=== PATIENT | female | born 1980 | race Caucasian/White ===

== ENCOUNTER 2019-02-23 15:30 | Emergency (ER) | payer SELFPAY ==
[~2019-02-23] VITALS: Ht 165.1 cm; Wt 45.9 kg
[2019-02-23] MEDS ORDERED: MECLIZINE 25 MG TABLET PO ONE (17:30)
[2019-02-23] MEDS ORDERED: METOCLOPRAMIDE INJ 10MG/2ML VIAL (J2765) IV ONE (17:30)
[2019-02-23] MEDS ORDERED: NS 1,000 ML IV ONE (17:30)
[2019-02-23] MEDS ORDERED: KETOROLAC 30 MG/ML VIAL (J1885) IV ONE (17:30)
[2019-02-23 18:01] LABS: BASO % 0.5 % (0.0-1.0); EOS # 0.1 10^3/uL (0.0-0.50); EOS % 0.8 % (0.0-3.0); HEMATOCRIT 40.3 % (36.0-47.0); HEMOGLOBIN 13.7 g/dl (12.0-15.5); LYMPH # 1.7 10^3/uL (1.5-4.5); LYMPH % 21.9 % (24.0-44.0); MEAN CORPUSCULAR HEMOGLOBIN 33.8 pg (27.0-33.0); MEAN CORPUSCULAR VOLUME 99.5 fl (80.0-96.0); MONO # 0.7 10^3/uL (0.0-0.8); MONO % 8.3 % (0.0-5.0); NEUTROPHILS # 5.4 10^3/uL (1.8-7.7); NEUTROPHILS % 68.2 % (36.0-66.0); PLATELET COUNT, AUTOMATED 212 10^3/uL (150-450); RED BLOOD COUNT 4.05 10^6/uL (4.00-5.40); WHITE BLOOD COUNT 7.9 10^3/uL (4.0-10.0)
--- NOTE | 2019-02-23 18:44 | REPVR ---
EXAM: CT Head Without Contrast EXAM DATE/TIME: 02/23/2019 6:29 PM CLINICAL HISTORY: 38 years old, female; Pain; Headache; Additional info: Dizzy, new occipital RAYA, HX blurry vision TECHNIQUE: Imaging protocol: Computed tomography images of the head without contrast. Radiation optimization: All CT scans at this facility use at least one of these dose optimization techniques: automated exposure control; mA and/or kV adjustment per patient size (includes targeted exams where dose is matched to clinical indication); or iterative reconstruction. COMPARISON: No relevant prior studies available. FINDINGS: Brain: Normal. No hemorrhage. Unremarkable white matter. No mass effect. Ventricles: Normal. No ventriculomegaly. Bones/joints: Unremarkable. No acute fracture. Sinuses: Visualized sinuses are unremarkable. No fluid levels. Mastoid air cells: Visualized mastoid air cells are well aerated. No mastoid effusion. Soft tissues: Unremarkable. Oropharynx: Low-lying cerebellar tonsils may indicate the presence of tonsillar ectopia. Clinical correlation suggested. Further evaluation with MR imaging may be indicated. IMPRESSION: 1. Low-lying cerebellar tonsils may indicate the presence of tonsillar ectopia. Clinical correlation suggested. Further evaluation with MR imaging may be indicated. 2. Otherwise unremarkable. Electronically signed by: Kali Jean-Baptiste On 02/23/2019 18:44:05 PM
--- NOTE | 2019-02-23 20:39 | REPVR ---
EXAM: MR Head Without Contrast EXAM DATE/TIME: 02/23/2019 7:24 PM CLINICAL HISTORY: 38 years old, female; Dizziness; Additional info: Low lying cerebellar tonsils on CT, occipital RAYA, dizzy TECHNIQUE: Imaging protocol: MR of the head without contrast. COMPARISON: CT Head without contrast 02/23/2019 6:27 PM FINDINGS: Brain: Normal. No acute infarct. No hemorrhage. No significant white matter disease. No edema. Normal appearance of the cerebellar tonsils. Ventricles: Normal. No ventriculomegaly. Bones/joints: Unremarkable. Soft tissues: Normal. Sinuses: Normal as visualized. No acute sinusitis. Mastoid air cells: Normal as visualized. No mastoid effusion. Orbits: Unremarkable. IMPRESSION: No acute findings. Electronically signed by: Kali Jean-Baptiste On 02/23/2019 20:38:14 PM
[2019-02-23] MEDS ORDERED: ZOFR4TAB16 PO (20:47)
[2019-02-23] MEDS ORDERED: MECL-68 PO (20:47)
[2019-02-23 20:54] VITALS: BP 112/70
--- NOTE | 2019-02-24 10:58 | ED PDOC ---
Post-Departure Follow-Up dr jacinto faxed formal report of ct head for fu Rashawn Gardiner MD Feb 24, 2019 10:58
--- NOTE | 2019-02-24 13:36 | ECGEPIP ---
[facility] - ED Test Date: 2019-02-23 Pat Name: THEO MURRAY Department: Room: - Gender: Female [employer]: RENETTA : 1980 Requested By: CHARLES Hernandez PA-C Order Number: [id number] Reading MD: Manuel Dorantes Measurements Intervals [place] Rate: 51 P: 32 IL: 148 QRS: 69 QRSD: 94 T: -5 QT: 441 QTc: 407 Interpretive Statements SINUS BRADYCARDIA WITH SINUS ARRHYTHMIA NONSPECIFIC T-WAVE ABNORMALITY NO PRIORS FOR COMPARISON Electronically Signed on 02-24-2019 13:36:05 EDT by Manuel Dorantes
== END 2019-02-23 21:05 | disposition home or self-care (01) ==
LOC: M ED 15:30
DX: R42 Dizziness and giddiness (principal); R51 Headache; R00.1 Bradycardia, unspecified; Z87.442 Personal history of urinary calculi; Z72.0 Tobacco use; Z88.1 Allergy status to other antibiotic agents
CPT/HCPCS: 70450; 70551; 80047; 84702; 85025; 93005; 96374; 96375; 99284; J1885; J2765

== ENCOUNTER 2019-08-30 14:20 | Emergency (ER) | payer SELFPAY ==
[~2019-08-30] VITALS: Ht 165.1 cm; Wt 45.8 kg
[2019-08-30 14:20] VITALS: BP 120/75
[~2019-08-30 14:20] MED LIST: MECL1TAB31 PO; ZOFR4TAB16 PO
[2019-08-30 17:10] LABS: INFLUENZA A AMPLIFICATION NEGATIVE (NEGATIVE); INFLUENZA B AMPLIFICATION POSITIVE (NEGATIVE)
[2019-08-30] MEDS ORDERED: ONDA4TAB6 PO (17:36)
[2019-08-30] MEDS ORDERED: ONDANSETRON 4 MG ORAL DISINTEGRATING TAB (Q0162 PER 1MG) PO ONE (17:45)
[2019-08-30] MEDS ORDERED: ACETAMINOPHEN 500 MG TAB PO ONE (17:45)
[2019-08-30] MEDS ORDERED: IBUPROFEN 600 MG TAB PO ONE (17:45)
== END 2019-08-30 17:51 | disposition home or self-care (01) ==
LOC: M ED 14:20
DX: J10.89 Influenza due to other identified influenza virus with other manifestations (principal); K13.79 Other lesions of oral mucosa; K58.9 Irritable bowel syndrome, unspecified; Z87.442 Personal history of urinary calculi; Z88.1 Allergy status to other antibiotic agents; F17.210 Nicotine dependence, cigarettes, uncomplicated
CPT/HCPCS: 87502; 87880; 99284; Q0162

== ENCOUNTER → 2020-02-20 | Emergency (ER) | payer SELFPAY ==
[~2020-02-20] MED LIST changes: +IBUP200C25 PO; +KLON0.5T PO; +ONDA4TAB6 PO; +clonazePAM 0.5 MG TAB ONE
== END | disposition home or self-care (01) ==
LOC: M ED 05:45
DX: F41.1 Generalized anxiety disorder (principal); F33.9 Major depressive disorder, recurrent, unspecified; N83.299 Other ovarian cyst, unspecified side; Z88.1 Allergy status to other antibiotic agents

== ENCOUNTER 2020-02-25 04:56 | Emergency (ER) | payer SELFPAY ==
[~2020-02-25] VITALS: Ht 165.1 cm; Wt 42.8 kg
[~2020-02-25 04:56] MED LIST changes: -IBUP200C25 PO; -KLON0.5T PO; -clonazePAM 0.5 MG TAB ONE
[2020-02-25 04:57] VITALS: BP 121/64
[2020-02-25] MEDS ORDERED: clonazePAM 0.5 MG TAB PO ONE (05:45)
[2020-02-25] MEDS ORDERED: KLON0.5T PO (05:50)
== END 2020-02-25 06:17 | disposition home or self-care (01) ==
LOC: M ED 04:56
DX: F41.1 Generalized anxiety disorder (principal); Z88.1 Allergy status to other antibiotic agents

== ENCOUNTER 2020-03-19 04:47 | Emergency (ER) | payer SELFPAY ==
[~2020-03-19] VITALS: Ht 165.1 cm; Wt 45.5 kg
[~2020-03-19 04:47] MED LIST changes: +KLON0.5T PO
[2020-03-19] MEDS ORDERED: IBUP200C25 PO (04:52)
[2020-03-19] MEDS ORDERED: NS 1,000 ML IV ONE ×2 (06:00→07:30)
[2020-03-19 06:42] LABS: HEMATOCRIT 41.1 % (36.0-47.0); HEMOGLOBIN 14.1 g/dl (12.0-15.5); MEAN CORPUSCULAR HEMOGLOBIN 34.9 pg (27.0-33.0); MEAN CORPUSCULAR HGB CONC 34.3 g/dl (32.0-36.5); MEAN CORPUSCULAR VOLUME 101.7 fl (80.0-96.0); PLATELET COUNT, AUTOMATED 210 10^3/uL (150-450); RED BLOOD COUNT 4.04 10^6/uL (4.00-5.40); WHITE BLOOD COUNT 7.7 10^3/uL (4.0-10.0)
[2020-03-19 07:00] LABS: BLOOD UREA NITROGEN 7 MG/DL (7-18); CALCIUM LEVEL 9.2 MG/DL (8.5-10.1); CARBON DIOXIDE LEVEL 24 MEQ/L (21-32); CHLORIDE LEVEL 108 MEQ/L (98-107); CPK CREATINE PHOSPHOKINASE 127 U/L (26-192); CREATININE FOR GFR 0.72 MG/DL (0.55-1.30); GLOMERULAR FILTRATION RATE > 60.0 (>60); GLUCOSE, FASTING 104 MG/DL (70-100); MAGNESIUM LEVEL 2.2 MG/DL (1.8-2.4); POTASSIUM SERUM 4.3 MEQ/L (3.5-5.1); SODIUM LEVEL 139 MEQ/L (136-145)
[2020-03-19 09:29] VITALS: BP 101/60
== END 2020-03-19 09:32 | disposition home or self-care (01) ==
LOC: M ED 04:47
DX: M79.10 Myalgia, unspecified site (principal); Z88.1 Allergy status to other antibiotic agents; Z77.098 Contact with and (suspected) exposure to other hazardous, chiefly nonmedicinal, chemicals

== ENCOUNTER 2020-04-02 04:37 | Emergency (ER) | payer SELFPAY ==
[~2020-04-02] VITALS: Ht 165.1 cm; Wt 44.1 kg
[~2020-04-02 04:37] MED LIST changes: +IBUP200C25 PO
[2020-04-02 05:25] LABS: BASO # 0.1 10^3/uL (0.0-0.2); BASO % 0.9 % (0.0-1.0); EOS # 0.2 10^3/uL (0.0-0.5); EOS % 2.8 % (0.0-3.0); HEMATOCRIT 35.8 % (36.0-47.0); HEMOGLOBIN 12.4 g/dl (12.0-15.5); LYMPH # 1.8 10^3/uL (1.5-5.0); LYMPH % 31.1 % (24.0-44.0); MEAN CORPUSCULAR HGB CONC 34.6 g/dl (32.0-36.5); MEAN CORPUSCULAR VOLUME 101.1 fl (80.0-96.0); MONO # 0.6 10^3/uL (0.0-0.8); NEUTROPHILS # 3.2 10^3/uL (1.5-8.5); NEUTROPHILS % 54.9 % (36.0-66.0); PLATELET COUNT, AUTOMATED 245 10^3/uL (150-450); RED BLOOD COUNT 3.54 10^6/uL (4.00-5.40); WHITE BLOOD COUNT 5.8 10^3/uL (4.0-10.0)
[2020-04-02 05:39] LABS: HCG, SERUM QUALITATIVE NEGATIVE (NEGATIVE)
[2020-04-02 05:43] LABS: ALBUMIN 3.9 GM/DL (3.2-5.2); ALT/SGPT 15 U/L (12-78); BILIRUBIN,DIRECT 0.3 MG/DL (0.0-0.2); BILIRUBIN,TOTAL 1.4 MG/DL (0.2-1.0); LIPASE 100 U/L (73-393); TOTAL PROTEIN 6.8 GM/DL (6.4-8.2)
[2020-04-02] MEDS ORDERED: NS 1,000 ML IV ONE (05:45)
[2020-04-02] MEDS ORDERED: ONDANSETRON 4MG/2ML VIAL IV ONE ×2 (05:45→06:30)
[2020-04-02] MEDS ORDERED: ONDA4TAB6 PO (08:55)
[2020-04-02 09:14] VITALS: BP 121/63
== END 2020-04-02 09:16 | disposition home or self-care (01) ==
LOC: M ED 04:37
DX: K52.9 Noninfective gastroenteritis and colitis, unspecified (principal); F17.200 Nicotine dependence, unspecified, uncomplicated; Z88.1 Allergy status to other antibiotic agents
CPT/HCPCS: 80047; 80076; 83690; 84703; 85025; 93041; 96361; 96374; 96376; 99284; J2405

== ENCOUNTER 2021-05-31 21:26 | Emergency (ER) | payer SELFPAY ==
[~2021-05-31] VITALS: Ht 165.1 cm; Wt 43.7 kg
--- OUTSIDE RECORDS SUMMARY | 2021-05-31 21:34 | CCD ---
Author Author [facility] Organization [facility] Address Unknown Phone Unavailable Care Team Providers Care Accounts Receivable Representative Name Role Phone Kiana Cervantes MD Unavailable Unavailable Kiana Cervantes MD Unavailable Unavailable Kiana Cervantes MD Unavailable Unavailable Kiana Cervantes MD Unavailable Unavailable Kiana Cervantes MD Unavailable Unavailable Kiana Cervantes MD Unavailable Unavailable Kiana Cervantes MD Unavailable Unavailable Kiana Cervantes MD Unavailable Unavailable Kiana Cervantes MD Unavailable Unavailable Kiana Cervantes MD Unavailable Unavailable Kiana Cervantes MD Unavailable Unavailable Kiana Cervantes MD Unavailable Unavailable Kiana Cervantes MD Unavailable Unavailable Kiana Cervantes MD Unavailable Unavailable Kiana Cervantes MD Unavailable Unavailable Kiana Cervantes MD Unavailable Unavailable Kiana Cervantes MD Unavailable Unavailable Kiana Cervantes MD Unavailable Unavailable Kiana Cervantes MD Unavailable Unavailable Kiana Cervantes MD Unavailable Unavailable Kiana Cervantes MD Unavailable Unavailable Kiana Cervantes MD Unavailable Unavailable Kiana Cervantes MD Unavailable Unavailable Kiana Cervantes MD Unavailable Unavailable Kiana Cervantes MD Unavailable Unavailable Kiana Cervantes MD Unavailable Unavailable Kiana Cervantes MD Unavailable Unavailable Kiana Cervantes MD Unavailable Unavailable Kiana Cervantes MD Unavailable Unavailable Kiana Cervantes MD Unavailable Unavailable Kiana Cervantes MD Unavailable Unavailable Kiana Cervantes MD Unavailable Unavailable Kiana Cervantes MD Unavailable Unavailable Kiana Cervantes MD Unavailable Unavailable Kiana Cervantes MD Unavailable Unavailable Kiana Cervantes MD Unavailable Unavailable Kiana Cervantes MD Unavailable Unavailable Kiana Cervantes MD Unavailable Unavailable Kiana Cervantes MD Unavailable Unavailable Kiana Cervantes MD Unavailable Unavailable Kiana Cervantes MD Unavailable Unavailable Kiana Cervantes MD Unavailable Unavailable Kiana Cervantes MD Unavailable Unavailable Kiana Cervantes MD Unavailable Unavailable Kiana Cervantes MD Unavailable Unavailable Kiana Cervantes MD Unavailable Unavailable Kiana Cervantes MD Unavailable Unavailable Kiana Cervantes MD Unavailable Unavailable Kiana Cervantes MD Unavailable Unavailable Cervantes, Kiana Cabrera MD Unavailable Unavailable Cervantes, D Rick MD Unavailable Unavailable Cervantes, D Rick MD Unavailable Unavailable Cervantes, D Rick MD Unavailable Unavailable Cervantes, D Rick MD Unavailable Unavailable Cervantes, D Rick MD Unavailable Unavailable Cervantes, D Rick MD Unavailable Unavailable Cervantes, D Rick MD Unavailable Unavailable Cervantes, D Rick MD Unavailable Unavailable Cervantes, D Rick MD Unavailable Unavailable Cervantes, D Rick MD Unavailable Unavailable Cervantes, D Rick MD Unavailable Unavailable Cervantes, D Rick MD Unavailable Unavailable Cervantes, D Rick MD Unavailable Unavailable Cervantes, D Rick MD Unavailable Unavailable Cervantes, D Rick MD Unavailable Unavailable Cervantes, D Rick MD Unavailable Unavailable Cervantes, D Rick MD Unavailable Unavailable Cervantes, D Rick MD Unavailable Unavailable Cervantes, D Rick MD Unavailable Unavailable Cervantes, D Rick MD Unavailable Unavailable Cervantes, D Rick MD Unavailable Unavailable Cervantes, D Rick MD Unavailable Unavailable Cervantes, D Rick MD Unavailable Unavailable Cervantes, D Rick MD Unavailable Unavailable Cervantes, D Rick MD Unavailable Unavailable Cervantes, D Rick MD Unavailable Unavailable Cervantes, D Rick MD Unavailable Unavailable Cervantes, D Rick MD Unavailable Unavailable Cervantes, D Rick MD Unavailable Unavailable Cervantes, D Rick MD Unavailable Unavailable Cervantes, D Rick MD Unavailable Unavailable Cervantes, D Rick MD Unavailable Unavailable Cervantes, D Rick MD Unavailable Unavailable Cervantes, D Rick MD Unavailable Unavailable Cervantes, D Rick MD Unavailable Unavailable Cervantes, D Rick MD Unavailable Unavailable Cervantes, D Rick MD Unavailable Unavailable Cervantes, D Rick MD Unavailable Unavailable Cervantes, D Rick MD Unavailable Unavailable Cervantes, D Rick MD Unavailable Unavailable Cervantes, D Rick MD Unavailable Unavailable Cervantes, D Rick MD Unavailable Unavailable Cervantes, D Rick MD Unavailable Unavailable Re-disclosure Warning The records that you are about to access may contain information from federally-assisted alcohol or drug abuse programs. If such information is present, then the following federally mandated warning applies: This information has been disclosed to you from records protected by federal confidentiality rules (42 CFR part 2). The federal rules prohibit you from making any further disclosure of this information unless further disclosure is expressly permitted by the written consent of the person to whom it pertains or as otherwise permitted by 42 CFR part 2. A general authorization for the release of medical or other information is NOT sufficient for this purpose. The Federal rules restrict any use of the information to criminally investigate or prosecute any alcohol or drug abuse patient.The records that you are about to access may contain highly sensitive health information, the redisclosure of which is protected by Article 27-F of the [facility] Public Health law. If you continue you may have access to information: Regarding HIV / AIDS; Provided by facilities licensed or operated by the [facility] Office of Mental Health; or Provided by the [facility] Office for People With Developmental Disabilities. If such information is present, then the following [facility] mandated warning applies: This information has been disclosed to you from confidential records which are protected by state law. State law prohibits you from making any further disclosure of this information without the specific written consent of the person to whom it pertains, or as otherwise permitted by law. Any unauthorized further disclosure in violation of state law may result in a fine or chcf sentence or both. A general authorization for the release of medical or other information is NOT sufficient authorization for further disc losure. Allergies and Adverse Reactions Type Description Substance Reaction Status Data Source(s ) Allergy to substance Allergy to substance Allergy to substance [place] ([facility]) Allergy to substance Allergy to substance Allergy to substance [place] ([facility]) Encounters Encounter Providers Location Date Indications Data Source(s ) Rick Cervantes MD: [address] [place], [place] [phone], Ph. Attender: Rick Cervantes MD [facility] Medical 10/08/2020 12:00:00 AM EDT [place] ([facility]) Rick Cervantes MD: [address] [place] [phone], Ph. Attender: Rick Cervantes MD [facility] 09/13/2020 12:00:00 AM EST [place] ([facility]) Rick Cervantes MD: [address] [place] [phone], Ph. Attender: Rick Cervantes MD [facility] 09/13/2020 12:00:00 AM EST [place] ([facility]) Immunizations Vaccine Date Status Description Data Source(s) COVID-19, mRNA, LNP-S, PF, 100 mcg/0.5 mL dose 10/08/2020 05 :18:36 PM EDT completed .5 mL [place] ([facility]) COVID-19 VACCINE Moderna 10/08/2020 12:00:00 AM EDT completed [place] Vaccine Series Complete: YESThis Data wa s Submitted to [facility] Via [employer]. COVID-19, mRNA, LNP-S, PF, 100 mcg/0.5 mL dose 09/14/2020 08 :19:07 AM EST completed 10.5 mL [place] ([facility]) COVID-19, mRNA, LNP-S, PF, 100 mcg/0.5 mL dose 09/14/2020 08 :19:07 AM EST completed .5 mL [place] ([facility]) COVID-19 VACCINE Moderna 09/14/2020 12:00:00 AM EST completed [place] Vaccine Series Complete: NOThis Data was Submitted to [facility] Via [employer]. Medications No Information Insurance Providers Payer name Policy type / Coverage type Policy ID Covered democrat ID Covered democrat's relationship to salazar Policy Salazar Plan Information SELF PAY ONLY [id number] O UNAVAILABLE UNAVAILA BLE Problems, Conditions, and Diagnoses No Information Surgeries/Procedures No Information Results No Information Social History No Information
[2021-05-31] MEDS ORDERED: IBUP80TA PO (21:36)
[2021-06-01] MEDS ORDERED: VENTAER INH (00:12)
[2021-06-01] MEDS ORDERED: TESS100C PO (00:12)
[2021-06-01] MEDS ORDERED: BENZONATATE 100MG CAPSULE PO ONE (00:15)
[2021-06-01] MEDS ORDERED: KETOROLAC TROMETHAMINE 10 MG TAB PO ONE (00:15)
[2021-06-01] MEDS ORDERED: ALBUTEROL 90 MCG/ACT 8GM HFA INHALER INH ONE (00:15)
--- OUTSIDE RECORDS SUMMARY | 2021-06-01 00:52 | CCD ---
Author Author [facility] Organization [facility] Address Unknown Phone Unavailable Care Team Providers Care Client Technical Specialist Name Role Phone Kiana Cervantes MD Unavailable [...] Cervantes, Kiana Cabrera MD Unavailable Unavailable Cervantes, Kiana Cabrera MD Unavailable Unavailable Cervantes, Kiana Cabrera MD Unavailable Unavailable Cervantes, Kiana Cabrera MD Unavailable Unavailable Cervantes, Kiana Cabrera MD Unavailable Unavailable Cervantes, iKana Cabrera MD Unavailable Unavailable Cervantes, D Rick MD Unavailable Unavailable Cervantes, D Rick MD Unavailable Unavailable Cervantes, Kiana Cabrera MD Unavailable Unavailable Cervantes, Kiana Cabrera MD Unavailable Unavailable Cervantes, Kiana Cabrera MD Unavailable Unavailable Cervantes, Kiana Cabrera MD Unavailable Unavailable Cervantes, Kiana Cabrera MD Unavailable Unavailable Cervantes, Kiana Cabrera MD Unavailable Unavailable Cervantes, Kiana Cabrera MD Unavailable Unavailable Cervantes, Kiana Cabrera MD Unavailable Unavailable Cervantes, Kiana Cabrera MD Unavailable Unavailable Cervantes, Kiana Cabrera MD Unavailable Unavailable Cervantes, Kiana Cabrera MD Unavailable Unavailable Cervantes, Kiana Cabrera MD Unavailable Unavailable Cervantes, Kiana Cabrera MD Unavailable Unavailable Cervantes, Kiana Cabrera MD Unavailable Unavailable Cervantes, Kiana Cabrera MD Unavailable Unavailable Cervantes, Kiana Cabrera MD Unavailable Unavailable Cervantes, Kiana Cabrera MD Unavailable Unavailable Cervantes, Kiana Cabrera MD Unavailable Unavailable Cervantes, Kiana Cabrera MD Unavailable Unavailable Cervantes, Kiana Cabrera MD Unavailable Unavailable Cervantes, Kiana Cabrera MD Unavailable Unavailable Cervantes, Kiana Cabrera MD Unavailable Unavailable Cervantes, Kiana Cabrera MD Unavailable Unavailable Cervantes, Kiana Cabrera MD Unavailable Unavailable Cervantes, Kiana Cabrera MD Unavailable Unavailable Cervantes, Kiana Cabrera MD Unavailable Unavailable Cervantes, Kiana Cabrera MD Unavailable Unavailable Cervantes, Kiana Cabrera MD Unavailable Unavailable Cervantes, Kiana Cabrera MD Unavailable Unavailable Cervantes, Kiana Cabrera MD Unavailable Unavailable Cervantes, Kiana Cabrera MD Unavailable Unavailable Cervantes, Kiana Cabrera MD Unavailable Unavailable Cervantes, Kiana Cabrera MD Unavailable Unavailable Cervantes, Kiana Cabrera MD Unavailable Unavailable Cervantes, Kiana Cabrera MD Unavailable Unavailable Cervantes, Kiana Cabrera MD Unavailable Unavailable Cervantes, Kiana Cabrera MD Unavailable Unavailable Cervantes, Kiana Cabrera MD Unavailable Unavailable Cervantes, Kiana Cabrera MD Unavailable Unavailable Cervantes, Kiana Cabrera MD Unavailable Unavailable Re-disclosure Warning The records [...] is protected by Article 27-F of the [facility] Public Health law. If you continue you may have access to information: Regarding HIV / AIDS; Provided by facilities licensed or operated by the [facility] Office of Mental Health; or Provided by the [facility] Office for People With Developmental Disabilities. If such information is present, then the following [facility] mandated warning applies: This information has been [...] law may result in a fine or nursing home sentence or both. A general authorization for the release of medical or other information is NOT sufficient authorization for further disc losure. Allergies and Adverse Reactions Type Description Substance Reaction Status Data Source(s ) Allergy to substance Allergy to substance Allergy to substance [place] ([facility]) Allergy to substance Allergy to substance Allergy to substance [place] ([facility]) Encounters Encounter Providers Location Date Indications Data Source(s ) Rick Cervantes MD: [address] [place] [phone], Ph. Attender: Rick Cervantes MD [facility] Medical 10/08/2020 12:00:00 AM EDT [place] ([facility]) Rick Cervantes MD: [address] [place] [phone], Ph. Attender: Rick Cervantes MD [facility] Medical 09/13/2020 12:00:00 AM EST [place] ([facility]) Rick Cervantes MD: [address] [place] [phone], Ph. Attender: Rick Cervantes MD [facility] 09/13/2020 12:00:00 AM EST [place] ([facility]) Immunizations Vaccine Date Status Description Data Source(s) COVID-19, mRNA, LNP-S, PF, 100 mcg/0.5 mL dose 10/08/2020 05 :18:36 PM EDT completed .5 mL [place] ([facility]) COVID-19 VACCINE Moderna 10/08/2020 12:00:00 AM EDT completed [place] Vaccine Series Complete: YESThis Data wa s Submitted to [facility] Via [employer]. COVID-19, mRNA, LNP-S, PF, 100 mcg/0.5 mL dose 09/14/2020 08 :19:07 AM EST completed .5 mL [place] ([facility]) COVID-19, mRNA, LNP-S, PF, 100 mcg/0.5 mL dose 09/14/2020 08 :19:07 AM EST completed .5 mL [place] ([facility]) COVID-19 VACCINE Moderna 09/14/2020 12:00:00 AM EST completed [place] Vaccine Series Complete: NOThis Data was Submitted to [facility] Via [employer]. Medications No Information Insurance Providers Payer name Policy type / Coverage type Policy ID Covered democrat ID Covered democrat's relationship to salazar Policy Salazar Plan Information SELF PAY ONLY [id number] O UNAVAILABLE UNAVAILA BLE Problems, Conditions, and Diagnoses No Information Surgeries/Procedures No Information Results No Information Social History No Information
[2021-06-01 01:13] VITALS: BP 137/60
== END 2021-06-01 01:14 | disposition home or self-care (01) ==
LOC: M ED 21:26
DX: J21.0 Acute bronchiolitis due to respiratory syncytial virus (principal); F41.9 Anxiety disorder, unspecified; F33.9 Major depressive disorder, recurrent, unspecified; F17.290 Nicotine dependence, other tobacco product, uncomplicated; Z88.1 Allergy status to other antibiotic agents; Z85.3 Personal history of malignant neoplasm of breast; Z98.890 Other specified postprocedural states; Z82.49 Family history of ischemic heart disease and other diseases of the circulatory system

== ENCOUNTER 2023-04-16 07:28 | Emergency (ER) | payer SELFPAY ==
[~2023-04-16] VITALS: Ht 165.1 cm; Wt 38.1 kg
[~2023-04-16 07:28] MED LIST changes: +IBUP80TA PO; +MECL-209 PO; -MECL1TAB31 PO; +TESS100C PO; +VENTAER INH
[2023-04-16] MEDS ORDERED: NS 1,000 ML IV ONE (08:50)
[2023-04-16 09:05] LABS: LIPASE 24 U/L (12-53)
[2023-04-16] MEDS ORDERED: ONDANSETRON 4MG 2ML VIAL IV ONE (09:05)
[2023-04-16] MEDS ORDERED: KETOROLAC 30 MG/ML 1ML VIAL IV ONE (09:05)
[2023-04-16 09:06] LABS: BASO % 0.6 % (0.0-1.0); EOS % 0.1 % (0.0-3.0); HEMATOCRIT 40.2 % (36.0-47.0); HEMOGLOBIN 14.3 g/dl (12.0-15.5); LYMPH # 0.8 10^3/uL (1.5-5.0); LYMPH % 11.7 % (24.0-44.0); MEAN CORPUSCULAR HEMOGLOBIN 35.1 pg (27.0-33.0); MEAN CORPUSCULAR HGB CONC 35.6 g/dl (32.0-36.5); MEAN CORPUSCULAR VOLUME 98.8 fl (80.0-96.0); MONO # 0.6 10^3/uL (0.0-0.8); MONO % 7.8 % (2.0-8.0); NEUTROPHILS # 5.7 10^3/uL (1.5-8.5); NEUTROPHILS % 79.5 % (36.0-66.0); PLATELET COUNT, AUTOMATED 250 10^3/uL (150-450); RED BLOOD COUNT 4.07 10^6/uL (4.00-5.40); WHITE BLOOD COUNT 7.2 10^3/uL (4.0-10.0)
[2023-04-16 09:07] LABS: ALBUMIN 4.6 G/DL (3.2-5.2); ALKALINE PHOSPHATASE 75 U/L (46-116); ALT/SGPT 20 U/L (7.0-40); AST/SGOT 20 U/L (<34); BILIRUBIN,DIRECT 0.6 MG/DL (<0.4); BILIRUBIN,TOTAL 2.1 MG/DL (0.3-1.2); BLOOD UREA NITROGEN 7 MG/DL (9-23); CALCIUM LEVEL 9.5 MG/DL (8.5-10.1); CARBON DIOXIDE LEVEL 26 MMOL/L (20-31); CHLORIDE LEVEL 104 MMOL/L (98-107); CREATININE FOR GFR 0.59 MG/DL (0.55-1.30); GLOMERULAR FILTRATION RATE > 60.0 (>58); GLUCOSE, FASTING 158 MG/DL (60-100); POTASSIUM SERUM 3.6 MMOL/L (3.5-5.1); SODIUM LEVEL 140 MMOL/L (136-145); TOTAL PROTEIN 7.5 G/DL (5.7-8.2)
[2023-04-16 09:11] LABS: HCG, SERUM QUALITATIVE NEGATIVE (NEGATIVE)
[2023-04-16 10:38] LABS: RSV AMPLIFICATION NEGATIVE (NEGATIVE)
[2023-04-16] MEDS ORDERED: HALOPERIDOL 5MG/ML 1ML VIAL IV ONE (11:40)
[2023-04-16] MEDS ORDERED: MORPHINE 2 MG/ML 1ML VIAL IV ONE (11:45)
[2023-04-16 11:50] LABS: APPEARANCE, URINE HAZY (CLEAR); BACTERIA, URINE AUTO 1+ (NEGATIVE); BILIRUBIN, URINE AUTO NEGATIVE (NEGATIVE); BLOOD, URINE BLOOD 1+ (NEGATIVE); COLOR, URINE YELLOW (YELLOW); GLUCOSE, URINE (UA) AUTO NEGATIVE (NEGATIVE); KETONE, URINE AUTO TRACE mg/dL (NEGATIVE); LEUKOCYTE ESTERASE, URINE AUTO NEGATIVE (NEGATIVE); MUCUS, URINE MODERATE (NEGATIVE); NITRITE, URINE AUTO POSITIVE (NEGATIVE); PROTEIN, URINE AUTO NEGATIVE (NEGATIVE); RBC, URINE AUTO 2 /HPF (0-3); SPECIFIC GRAVITY URINE AUTO 1.014 (1.002-1.035); SQUAMOUS EPITHELIAL CELL UR AU 2 /HPF (0-6); WBC, URINE AUTO 0 /HPF (0-3)
[2023-04-16] MEDS ORDERED: ISOVUE-370 76% 100ML VIAL As Ordered ONE (12:10)
[2023-04-16] MEDS: GASTROGRAFIN SOLUTION 30ML PO SCH ×2 (12:56→13:00)
[2023-04-16] MEDS ORDERED: ONDANSETRON 4MG ORAL DISINTEGRATING TAB PO ONE (15:50)
[2023-04-16] MEDS ORDERED: METR-265 PO (15:51)
[2023-04-16] MEDS ORDERED: ONDA4TAB6 PO (15:51)
[2023-04-16 16:10] VITALS: BP 109/70; TEMP 97.9; O2SAT 99
[2023-04-16 16:29] LABS: GC DNA AMPLIFICATION NEGATIVE (NEGATIVE)
== END 2023-04-16 16:13 | disposition home or self-care (01) ==
LOC: M ED 07:28
DX: N76.1 Subacute and chronic vaginitis (principal); F12.988 Cannabis use, unspecified with other cannabis-induced disorder; N83.291 Other ovarian cyst, right side; F41.9 Anxiety disorder, unspecified; K21.9 Gastro-esophageal reflux disease without esophagitis; C50.919 Malignant neoplasm of unspecified site of unspecified female breast; Z87.442 Personal history of urinary calculi; Z88.1 Allergy status to other antibiotic agents; Z79.83 Long term (current) use of bisphosphonates; Z79.899 Other long term (current) drug therapy
CPT/HCPCS: 74177; 76705; 80048; 80076; 81001; 83690; 84703; 85025; 87210; 87631; 87810; 87850; 96361; 96374; 96375; 99284; J1630; J1885; J2405; Q9963; Q9967

== ENCOUNTER 2024-02-24 15:28 | Emergency (ER) | payer MEDICAID, SELFPAY ==
[~2024-02-24] VITALS: Ht 165.1 cm; Wt 36.0 kg
[~2024-02-24 15:28] MED LIST changes: -KLON0.5T PO; +KLON0.5T8 PO; +METR-265 PO; +ONDA-282 PO; -ONDA4TAB6 PO
[2024-02-24] MEDS: ONDANSETRON 4MG ORAL DISINTEGRATING TAB PO ONE (16:24)
[2024-02-24 19:02] VITALS: BP 111/67; TEMP 98.5; O2SAT 98
== END 2024-02-24 19:04 | disposition home or self-care (01) ==
LOC: M ED 15:28
DX: F41.9 Anxiety disorder, unspecified (principal); R11.0 Nausea; Z88.1 Allergy status to other antibiotic agents

== ENCOUNTER 2024-02-26 11:07 | Emergency (ER) | payer MEDICAID, SELFPAY ==
[~2024-02-26] VITALS: Ht 165.1 cm; Wt 34.3 kg
[2024-02-26] MEDS: NS 1,000 ML IV ONE (12:08)
[2024-02-26] MEDS: ONDANSETRON 4MG 2ML VIAL IV ONE (12:09)
[2024-02-26] MEDS: MORPHINE 2 MG/ML 1ML VIAL IV ONE (12:09)
[2024-02-26 12:26] LABS: BASO # 0.1 10^3/uL (0.0-0.2); BASO % 0.6 % (0.0-1.0); EOS % 0.3 % (0.0-3.0); HEMATOCRIT 36.1 % (36.0-47.0); HEMOGLOBIN 12.9 g/dl (12.0-15.5); LYMPH # 1.2 10^3/uL (1.5-5.0); LYMPH % 15.2 % (24.0-44.0); MEAN CORPUSCULAR HEMOGLOBIN 34.7 pg (27.0-33.0); MEAN CORPUSCULAR HGB CONC 35.7 g/dl (32.0-36.5); MONO # 0.9 10^3/uL (0.0-0.8); MONO % 11.6 % (2.0-8.0); NEUTROPHILS # 5.7 10^3/uL (1.5-8.5); NEUTROPHILS % 71.9 % (36.0-66.0); PLATELET COUNT, AUTOMATED 230 10^3/uL (150-450); RED BLOOD COUNT 3.72 10^6/uL (4.00-5.40); WHITE BLOOD COUNT 7.9 10^3/uL (4.0-10.0)
[2024-02-26 12:40] LABS: INR 1.18; PARTIAL THROMBOPLASTIN TIME 27.8 SECONDS (24.8-34.2); PROTHROMBIN TIME 14.6 SECONDS (12.5-14.5)
[2024-02-26] MEDS ORDERED: ISOVUE-370 76% 100ML VIAL As Ordered ONE (12:47)
[2024-02-26 12:52] LABS: CK-MB VALUE MASS < 1.0 NG/ML (<3.6)
[2024-02-26 12:53] LABS: CPK CREATINE PHOSPHOKINASE 165 U/L (34-145)
[2024-02-26 14:01] LABS: CPK CREATINE PHOSPHOKINASE 134 U/L (34-145)
[2024-02-26 14:03] LABS: BLOOD UREA NITROGEN 5 MG/DL (9-23); CALCIUM LEVEL 8.4 MG/DL (8.5-10.1); CARBON DIOXIDE LEVEL 28 MMOL/L (20-31); CHLORIDE LEVEL 106 MMOL/L (98-107); CK-MB VALUE MASS < 1.0 NG/ML (<3.6); CREATININE FOR GFR 0.52 MG/DL (0.55-1.30); GLOMERULAR FILTRATION RATE > 60.0 (>58); GLUCOSE, FASTING 108 MG/DL (60-100); MAGNESIUM LEVEL 1.8 MG/DL (1.8-2.4); MB/CK RELATIVE INDEX 0.74 (< OR =4); POTASSIUM SERUM 2.7 MMOL/L (3.5-5.1); SODIUM LEVEL 139 MMOL/L (136-145)
[2024-02-26] MEDS: ALBUTEROL 90 MCG/ACT 8GM HFA INHALER INH ONE (14:31)
[2024-02-26] MEDS: KCL 10MEQ/100ML SWI (KRUN) 10 MEQ in IV 1 EA IV ONE (14:31)
[2024-02-26] MEDS: KETOROLAC 30 MG/ML 1ML VIAL IV ONE (14:31)
[2024-02-26] MEDS: POTASSIUM CHLORIDE 10MEQ SR TABLET PO ONE (14:34)
[2024-02-26] MEDS: METOCLOPRAMIDE INJ 10MG/2ML VIAL IV ONE (16:22)
[2024-02-26 16:38] VITALS: BP 115/56; TEMP 99.3; O2SAT 98
[2024-02-26] MEDS ORDERED: HYDR-3363 PO (16:41)
== END 2024-02-26 17:11 | disposition home or self-care (01) ==
LOC: M ED 11:07
DX: E87.6 Hypokalemia (principal); R11.2 Nausea with vomiting, unspecified; F41.9 Anxiety disorder, unspecified; F43.0 Acute stress reaction; K21.9 Gastro-esophageal reflux disease without esophagitis; F32.A Depression, unspecified; F17.200 Nicotine dependence, unspecified, uncomplicated; Z88.1 Allergy status to other antibiotic agents
CPT/HCPCS: 71275; 80047; 80048; 82550; 82553; 83735; 84484; 85025; 85610; 85730; 93005; 93041; 94760; 96361; 96365; 96366; 96375; 99285; J1885; J2405; J2765; Q9967

== ENCOUNTER 2024-02-29 09:52 | Emergency (ER) | payer MEDICAID, SELFPAY ==
[~2024-02-29] VITALS: Ht 165.1 cm; Wt 35.1 kg
[~2024-02-29 09:52] MED LIST changes: +HYDR-3363 PO
[2024-02-29 12:01] LABS: BLOOD UREA NITROGEN < 5 MG/DL (9-23); CALCIUM LEVEL 9.2 MG/DL (8.5-10.1); CARBON DIOXIDE LEVEL 30 MMOL/L (20-31); CHLORIDE LEVEL 107 MMOL/L (98-107); CREATININE FOR GFR 0.54 MG/DL (0.55-1.30); GLOMERULAR FILTRATION RATE > 60.0 (>58); GLUCOSE, FASTING 100 MG/DL (60-100); MAGNESIUM LEVEL 1.9 MG/DL (1.8-2.4); POTASSIUM SERUM 2.7 MMOL/L (3.5-5.1); SODIUM LEVEL 140 MMOL/L (136-145)
[2024-02-29] MEDS: KCL 10MEQ/100ML SWI (KRUN) 10 MEQ in IV 1 EA IV ONE ×2 (12:15→16:21)
[2024-02-29] MEDS: POTASSIUM CHLORIDE 10MEQ SR TABLET PO ONE ×2 (12:40→16:21)
[2024-02-29 18:00] VITALS: BP 113/60; TEMP 98.1; O2SAT 98
== END 2024-02-29 18:09 | disposition home or self-care (01) ==
LOC: M ED 09:52
DX: E87.6 Hypokalemia (principal); Z53.9 Procedure and treatment not carried out, unspecified reason; K21.9 Gastro-esophageal reflux disease without esophagitis; F41.9 Anxiety disorder, unspecified; F32.A Depression, unspecified; Z88.1 Allergy status to other antibiotic agents

== ENCOUNTER → 2024-06-01 | Outpatient (CLI) | payer OTHER | LOC: M PLALAB 09:03 | PROVIDERS: ATTEND Nurse Practitioner Family | DX: Z12.4 Encounter for screening for malignant neoplasm of cervix (principal); N92.0 Excessive and frequent menstruation with regular cycle ==

== ENCOUNTER → 2024-07-12 | Outpatient (REF) | payer OTHER | LOC: M SFHCWAGY 17:24 | PROVIDERS: ATTEND Nurse Practitioner Family | DX: L91.8 Other hypertrophic disorders of the skin (principal) ==

== ENCOUNTER → 2024-07-12 | Outpatient (CLI) | payer OTHER | LOC: M WHC 07:15 | PROVIDERS: ATTEND Nurse Practitioner Family | DX: Z12.31 Encounter for screening mammogram for malignant neoplasm of breast (principal); N92.0 Excessive and frequent menstruation with regular cycle; R92.343 Mammographic extreme density, bilateral breasts; N88.8 Other specified noninflammatory disorders of cervix uteri ==

== ENCOUNTER → 2024-08-01 | Outpatient (CLI) | payer OTHER | LOC: M WHC 13:12 | PROVIDERS: ATTEND Nurse Practitioner Family | DX: R92.8 Other abnormal and inconclusive findings on diagnostic imaging of breast (principal); R92.343 Mammographic extreme density, bilateral breasts; R92.1 Mammographic calcification found on diagnostic imaging of breast; N60.11 Diffuse cystic mastopathy of right breast; N63.10 Unspecified lump in the right breast, unspecified quadrant; N60.12 Diffuse cystic mastopathy of left breast; N63.20 Unspecified lump in the left breast, unspecified quadrant ==

== ENCOUNTER → 2024-08-11 | Outpatient (CLI) | payer OTHER ==
[2024-08-11 10:48] VITALS: TEMP 98.6
[2024-08-11 11:54] VITALS: BP 108/74; O2SAT 100
== END ==
LOC: M WHCPRO 08:29
PROVIDERS: ATTEND Nurse Practitioner Family
DX: R92.8 Other abnormal and inconclusive findings on diagnostic imaging of breast (principal); N63.11 Unspecified lump in the right breast, upper outer quadrant; N63.23 Unspecified lump in the left breast, lower outer quadrant

== ENCOUNTER → 2024-09-15 | Outpatient (CLI) | payer OTHER ==
[2024-09-15 13:05] LABS: FOLLICLE STIMULATING HORMONE 14.7 mIU/ML; THYROID STIMULATING HORMONE 0.625 uIU/ML (0.55-4.78)
[2024-09-15 13:06] LABS: LUTEINIZING HORMONE 30.9 mIU/ML; PROLACTIN 8.48 NG/ML
[2024-09-15 13:08] LABS: FREE T4 0.82 NG/DL (0.89-1.76); PROGESTERONE 0.72 NG/ML
== END ==
LOC: M PLALAB 08:09
PROVIDERS: ATTEND Nurse Practitioner Family
DX: N95.9 Unspecified menopausal and perimenopausal disorder (principal)

== ENCOUNTER → 2024-10-03 | Outpatient (CLI) | payer OTHER | LOC: M PLALAB 08:24 | PROVIDERS: ATTEND Surgery | DX: Z13.71 Encounter for nonprocreative screening for genetic disease carrier status (principal); Z80.3 Family history of malignant neoplasm of breast ==

== ENCOUNTER → 2025-03-01 | Outpatient (CLI) | payer OTHER | LOC: M WHC 08:19 | PROVIDERS: ATTEND Nurse Practitioner Family | DX: R92.8 Other abnormal and inconclusive findings on diagnostic imaging of breast (principal); N63.10 Unspecified lump in the right breast, unspecified quadrant; N63.20 Unspecified lump in the left breast, unspecified quadrant ==